=== PATIENT | female | born 1945 | race Caucasian/White ===

== ENCOUNTER → 2016-09-10 | Outpatient (REF) | payer MEDICARE ==
[~2016-09-10] MED LIST: /FENO14TA PO; /MOXI40TA PO; /PANT40TA PO; ACET-654 PO; ALBU0.084 INH; ALBU83IN INH; ASPI81TA7 PO; ASPI81TA85 PO; BYST2.5T PO; BYST2.5T2 PO; CELE10TA PO; CELE20TA PO; CLOP75TA2 PO; CRES5TAB PO; DIGO0.12 PO; DIGO25TA PO; DOCU10CA PO; DOCU10ELUD PO; FOLI1TAB2 PO; INSUH10VL INJ; INSULANT SC; KLOR1TAB77 PO; LANTINJ4 SC; LASI20TA PO; LASI40TA PO; MAGN400T5 PO; MEGA RED PO; NOVOINJ3 SC; PLAV75TA38 PO; POTA20TA PO; PRED5PAK PO; RANI15TA PO; ROSU10TA PO; spiriva INH
== END | disposition home or self-care (01) ==
LOC: M SMT 12:52
PROVIDERS: ATTEND Urology
DX: C67.9 Malignant neoplasm of bladder, unspecified (principal); R82.8 Abnormal findings on cytological and histological examination of urine

== ENCOUNTER → 2016-12-10 | Outpatient (REF) | payer MEDICARE ==
[~2016-12-10] MED LIST changes: +CRES10TA32 PO; -ROSU10TA PO
== END ==
LOC: M SMT 17:08
PROVIDERS: ATTEND Urology
DX: C67.9 Malignant neoplasm of bladder, unspecified (principal)

== ENCOUNTER → 2017-02-18 | Outpatient (REF) | payer MEDICARE ==
[~2017-02-18] MED LIST changes: +ACET1TAB17 PO; -FOLI1TAB2 PO; +FOLI1TAB4 PO; +PLAV1TAB2 PO; -PLAV75TA38 PO
== END ==
LOC: M SMT 12:54
PROVIDERS: ATTEND Urology
DX: C67.9 Malignant neoplasm of bladder, unspecified (principal)

== ENCOUNTER → 2017-05-20 | Outpatient (REF) | payer MEDICARE | LOC: M SMT 17:05 | PROVIDERS: ATTEND Urology | DX: C67.9 Malignant neoplasm of bladder, unspecified (principal) ==

== ENCOUNTER → 2017-09-02 | Outpatient (REF) | payer MEDICARE | LOC: M SMT 12:50 | DX: C67.9 Malignant neoplasm of bladder, unspecified (principal) | CPT/HCPCS: 88108 ==

== ENCOUNTER → 2017-12-02 | Outpatient (REF) | payer MEDICARE | LOC: M SMT 12:54 | DX: C67.9 Malignant neoplasm of bladder, unspecified (principal) | CPT/HCPCS: 88108 ==

== ENCOUNTER → 2018-03-10 | Outpatient (REF) | payer MEDICARE | LOC: M SMT 17:08 | DX: C67.9 Malignant neoplasm of bladder, unspecified (principal) | CPT/HCPCS: 88108 ==

== ENCOUNTER 2018-06-20 12:50 | Emergency (ER) | payer MEDICARE ==
[2018-06-20] MEDS: KCL 10MEQ/100ML SWI (KRUN) 10 MEQ in APPROPRIATE DILUENT 1 EA IV ×2 (14:24→17:43)
[2018-06-20 14:29] LABS: BASO # 0.1 10^3/uL (0.0-0.2); BASO % 0.5 % (0.0-1.0); EOS # 0.1 10^3/uL (0.0-0.50); EOS % 0.5 % (0.0-3.0); HEMATOCRIT 39.3 % (36.0-47.0); HEMOGLOBIN 12.8 g/dl (12.0-15.5); IMMATURE GRANULOCYTE % 0.3 % (0-3.0); LYMPH # 2.2 10^3/uL (1.5-4.5); LYMPH % 21.4 % (24.0-44.0); MEAN CORPUSCULAR HEMOGLOBIN 28.1 pg (27.0-33.0); MEAN CORPUSCULAR HGB CONC 32.6 g/dl (32.0-36.5); MEAN CORPUSCULAR VOLUME 86.4 fl (80.0-96.0); MONO # 0.8 10^3/uL (0.0-0.8); NEUTROPHILS # 7.1 10^3/uL (1.8-7.7); NEUTROPHILS % 69.3 % (36.0-66.0); PLATELET COUNT, AUTOMATED 218 10^3/uL (150-450); RED BLOOD COUNT 4.55 10^6/uL (4.00-5.40); RED CELL DISTRIBUTION WIDTH 14.7 % (11.5-14.5); WHITE BLOOD COUNT 10.3 10^3/uL (4.0-10.0)
[2018-06-20 14:47] LABS: LACTIC ACID SEPSIS PROTOCOL 1.5 MMOL/L (0.4-2.0)
[2018-06-20 15:15] LABS: ANION GAP 11 MEQ/L (8-16); BLOOD UREA NITROGEN 33 MG/DL (7-18); CALCIUM LEVEL 9.3 MG/DL (8.8-10.2); CARBON DIOXIDE LEVEL 33 MEQ/L (21-32); CHLORIDE LEVEL 95 MEQ/L (98-107); CPK CREATINE PHOSPHOKINASE 100 U/L (26-192); CREATININE FOR GFR 0.87 MG/DL (0.55-1.30); GLOMERULAR FILTRATION RATE > 60.0 (>39); GLUCOSE, FASTING 59 MG/DL (70-100); POTASSIUM SERUM 2.9 MEQ/L (3.5-5.1); SODIUM LEVEL 139 MEQ/L (136-145); TROPONIN I 0.03 NG/ML (< 0.10)
[2018-06-20] MEDS: POTASSIUM CHLORIDE 10 MEQ SR TABLET PO (15:45)
[2018-06-20] MEDS: NS 1,000 ML IV (17:44)
[2018-06-20] MEDS: POTASSIUM CHLORIDE 10% LIQ 20 MEQ/15 ML UDC PO (18:00)
[2018-06-20 21:12] LABS: KETONE, URINE AUTO RFX NEGATIVE (NEGATIVE); MUCUS, URINE RFX SMALL (NEGATIVE); NITRITE, URINE AUTO RFX NEGATIVE (NEGATIVE); RBC, URINE AUTO RFX 5 /HPF (0-3); SPECIFIC GRAVITY UR AUTO RFX 1.013 (1.002-1.035); SQUAM EPITHELIAL CELL UR AURFX 5 /HPF (0-6)
[2018-06-20 21:13] LABS: LEUKOCYTE ESTERASE UR AUTO RFX TRACE (NEGATIVE); WBC, URINE AUTO RFX 13 /HPF (0-3)
[2018-06-20] MEDS: ACETAMINOPHEN TAB 650MG DOSE (2X325MG) PO (21:54)
[2018-06-20] MEDS: CEPHALEXIN 500 MG CAP PO (22:49)
[2018-06-20 23:25] LABS: POTASSIUM SERUM 3.8 MEQ/L (3.5-5.1)
== END 2018-06-21 00:03 | disposition home or self-care (01) ==
LOC: M ED 06-21 00:03
DX: S93.611A Sprain of tarsal ligament of right foot, initial encounter (principal); W19.XXXA Unspecified fall, initial encounter; Y92.099 Unspecified place in other non-institutional residence as the place of occurrence of the external cause; Y93.9 Activity, unspecified; Y99.9 Unspecified external cause status; N39.0 Urinary tract infection, site not specified; E87.6 Hypokalemia; Z95.0 Presence of cardiac pacemaker; R94.31 Abnormal electrocardiogram [ECG] [EKG]; I50.9 Heart failure, unspecified; F32.9 Major depressive disorder, single episode, unspecified; M54.30 Sciatica, unspecified side; R51 Headache; J44.9 Chronic obstructive pulmonary disease, unspecified; K21.9 Gastro-esophageal reflux disease without esophagitis; Z87.01 Personal history of pneumonia (recurrent); Z95.5 Presence of coronary angioplasty implant and graft; M19.011 Primary osteoarthritis, right shoulder; M19.012 Primary osteoarthritis, left shoulder; M77.31 Calcaneal spur, right foot; Z96.641 Presence of right artificial hip joint; Z79.82 Long term (current) use of aspirin; Z79.4 Long term (current) use of insulin; Z79.899 Other long term (current) drug therapy; Z88.2 Allergy status to sulfonamides
CPT/HCPCS: 71046